=== PATIENT | female | born 1965 ===

== ENCOUNTER 2017-11-15 11:21 | Inpatient (IN) | payer BC ==
[2017-11-15 12:20] LABS: BASO # 0.1 K/uL (0.0-0.2); BASO % 0.9 % (0.0-2.0); EOS # 0.2 K/uL (0.0-0.7); EOS % 2.6 % (0.0-4.0); HEMOGLOBIN 15.1 g/dL (11.0-16.0); LYMPH # 2.4 K/uL (1.0-4.3); LYMPH % 30.3 % (20.0-40.0); MEAN CELL VOLUME 85.8 fL (81.0-99.0); MEAN CORPUSCULAR HGB CONC 34.9 g/dL (33.0-37.0); MEAN PLATELET VOLUME 9.7 fL (7.2-11.7); MONO # 0.6 K/uL (0.0-0.8); MONO % 7.9 % (0.0-10.0); NEUT # 4.7 K/uL (1.8-7.0); NEUT % 58.3 % (50.0-75.0); RBC 5.04 Mil/uL (3.80-5.20); RED CELL DISTRIBUTION WIDTH 13.4 % (11.5-14.5)
[2017-11-15 12:30] LABS: INR 1.1; PROTHROMBIN TIME 11.8 SECONDS (9.7-12.2)
[2017-11-15 12:35] LABS: ALB/GLOB RATIO 1.4 (1.0-2.1); ALBUMIN 4.4 g/dL (3.5-5.0); CALCIUM 9.3 mg/dl (8.6-10.4)
[2017-11-15] MEDS ORDERED: Sodium Chloride 0.9% 1,000 ML IV ONE (14:11)
[2017-11-15 14:29] LABS: SQUAMOUS EPITHIAL 1 /hpf (0-5); URINE BACTERIA RARE (<OCC); URINE BILIRUBIN NEGATIVE (NEGATIVE); URINE BLOOD 1+ (NEGATIVE); URINE CLARITY Hazy (Clear); URINE COLOR Straw (YELLOW); URINE GLUCOSE (UA) NORMAL (Normal); URINE LEUKOCYTE ESTERASE 3+ Leu/uL (Negative); URINE PROTEIN NEGATIVE (NEGATIVE); URINE UROBILINOGEN NORMAL mg/dL (0.2-1.0)
[2017-11-15 16:15] VITALS: RESP 20
--- NOTE | 2017-11-15 17:23 | C.PDOC ---
History Of Present Illness 52-year-old female, presents to the emergency department with complaints of a kidney stone. Patient referred by Dr Torres, nephrology, for kidney stone. Patient had a CT scan that showed a 1.8cm in right kidney. She is currently denying pain. Notes occasional burning on urination. No other complaints at this time. Chief Complaint (Nursing): Female Genitourinary History Per: Patient History/Exam Limitations: no limitations Past Medical History Reviewed: Historical Data, Nursing Documentation, Vital Signs Vital Signs: Last Vital Signs Temp 98.2 F 11/15/17 16:08 Pulse 65 11/15/17 16:08 Resp 20 11/15/17 16:08 BP 123/84 11/15/17 16:08 Pulse Ox 98 11/15/17 17:25 - Medical History PMH: Hyperthyroidism, Kidney Stones, Chronic Kidney Disease Family History: States: No Known Family Hx - Social History Hx Alcohol Use: No Hx Substance Use: No - Immunization History Hx Tetanus Toxoid Vaccination: No Hx Influenza Vaccination: No Hx Pneumococcal Vaccination: No Review Of Systems Constitutional: Negative for: Fever, Chills Cardiovascular: Negative for: Chest Pain Gastrointestinal: Negative for: Nausea, Vomiting, Abdominal Pain Genitourinary: Positive for: Dysuria. Negative for: Frequency, Hematuria, Vaginal Discharge, Vaginal Bleeding, Pelvic Pain Musculoskeletal: Negative for: Back Pain Skin: Negative for: Rash Neurological: Negative for: Weakness, Numbness Physical Exam - Physical Exam Appears: Non-toxic, No Acute Distress Skin: Normal Color, Warm, Dry, No Rash Head: Atraumatic, Normacephalic Eye(s): bilateral: Normal Inspection, PERRL, EOMI Nose: Normal Oral Mucosa: Moist Lips: Normal Appearing Neck: Normal ROM Chest: Symmetrical Cardiovascular: Rhythm Regular, No Murmur Respiratory: Normal Breath Sounds, No Accessory Muscle Use Gastrointestinal/Abdominal: Soft, No Tenderness, No Guarding, No Rebound Back: CVA Tenderness (right, mild) Extremity: Normal ROM, No Deformity, No Swelling Neurological/Psych: Oriented x3, Normal Speech ED Course And Treatment - Laboratory Results Result Diagrams: 11/15/17 12:11 11/15/17 12:11 O2 Sat by Pulse Oximetry: 98 (RA) Pulse Ox Interpretation: Normal Medical Decision Making Medical Decision Making: Plan: * Bloodwork * UA * Reassess and Disposition Disposition - Disposition Disposition: HOSPITALIZED Disposition Time: 12:00 Condition: STABLE - Clinical Impression Clinical Impression: Kidney stone, Hydroureter, Hydronephrosis - Scribe Statement The provider has reviewed the documentation as recorded by the Scribe (Juan Francisco Huff) All medical record entries made by the Scribe were at my direction and personally dictated by me. I have reviewed the chart and agree that the record accurately reflects my personal performance of the history, physical exam, medical decision making, and the department course for this patient. I have also personally directed, reviewed, and agree with the discharge instructions and disposition.
--- NOTE | 2017-11-15 19:02 | CP.PCM.CON ---
History of Present Illness - History of Present Illness History of Present Illness: REASONS FOR CONSULT : CKD STAGE 3 WITH eGFR AT 43 ML / M ..STAGE 3 H/O LUISITO RENAL STONES R RENAL HYDRO WITH MID URETHRAL LARGE STONE 1.8 CM ON RENAL SONO WELL CT SCAN PROBABLE UTI S/P PARA THYRIODECTOMY 3-4 YEARS AGO 2/2 PRIMARY HYPER PARATHYROIDISM PT IS WELL KNOWN TO ME , FROM OFFICE WITH H/O PRM HYPER PARATHYROIDISM ,S/P SURGERY FOR THAT .. DID WELL POST OP H/O CKD , STABLE ..H/O BORDERLINE HTN .. H/O LUISITO RENAL STONES ON ROUTINE F/U RENAL SONO THERE WAS DISCOVERED R MODERATE TO SEVERE HYDRO .. RENAL CT WITHOUT CONTRAST REVEALED SEVERE R HYDRO WITH R MID URETHERAL STONE 1.8 CM .. PT WAS DIRECTED TO GO TO ER FOR STENT / OR IF NOT SUCCESSFUL THER PERC NEPHROSTOMY C D/W ER ATTENDING AT LENGTH CASE D/W DR YOST , UROLOGIST , AT LENGTH CASE D/W PT AND HER AT LENGTH CASE D/W DR REDD , PMD : HE IS VERY BUSY AT THE OFFICE .. TO BE ADMITTED UNDER DR Sravanthi COPELAND WITH ALL THE HYDRONEPHROSIS AND THE LARGE URETHERAL STONE : PT DENIED ANY PAIN ON THE R LOIN SHE DENIES ANY LOWER URINARY SYMPTOMS Past Patient History - Past Medical History & Family History Past Medical History?: Yes - Past Social History Smoking Status: Never Smoked - CARDIAC Hx Cardiac Disorders: No - PULMONARY Hx Respiratory Disorders: No - NEUROLOGICAL Hx Neurological Disorder: No - HEENT Hx HEENT Problems: No - RENAL Hx Chronic Kidney Disease: Yes Hx Kidney Stones: Yes - ENDOCRINE/METABOLIC Hx Hyperthyroidism: Yes - HEMATOLOGICAL/ONCOLOGICAL Hx Blood Disorders: No - INTEGUMENTARY Hx Dermatological Problems: No - MUSCULOSKELETAL/RHEUMATOLOGICAL Hx Musculoskeletal Disorders: No Hx Falls: No - GASTROINTESTINAL Hx Gastrointestinal Disorders: No - GENITOURINARY/GYNECOLOGICAL Hx Genitourinary Disorders: No - PSYCHIATRIC Hx Substance Use: No - SURGICAL HISTORY Hx Surgeries: Yes Hx Thyroidectomy: Yes Meds Allergies/Adverse Reactions: Allergies Allergy/AdvReac Type Severity Reaction Status Date / Time No Known Allergies Allergy Verified 11/15/17 11:28 - Medications Medications: Current Medications Dextrose/Sodium Chloride (Dextrose 5%/0.45% Ns 1000 Ml) 1,000 mls @ 100 mls/hr IV .Q10H [facility] Pneumococcal Polyvalent Vaccine (Pneumovax 23 Vaccine) 0.5 ml IM .ONCE ONE Stop: 11/18/17 10:01 Results - Vital Signs Recent Vital Signs: Last Vital Signs Temp 98.2 F 11/15/17 16:08 Pulse 65 11/15/17 16:08 Resp 20 11/15/17 16:08 BP 123/84 11/15/17 16:08 Pulse Ox 98 11/15/17 17:54 - Labs Result Diagrams: 11/15/17 12:11 11/15/17 12:11 Labs: Laboratory Results - last 24 hr 11/15/17 11/15/17 11/15/17 12:11 12:11 12:11 WBC 8.0 RBC 5.04 Hgb 15.1 Hct 43.2 MCV 85.8 MCH 30.0 MCHC 34.9 RDW 13.4 Plt Count 272 MPV 9.7 Neut % (Auto) 58.3 Lymph % (Auto) 30.3 [place] % (Auto) 7.9 Eos % (Auto) 2.6 Baso % (Auto) 0.9 Neut # (Auto) 4.7 Lymph # (Auto) 2.4 [place] # (Auto) 0.6 Eos # (Auto) 0.2 Baso # (Auto) 0.1 PT 11.8 INR 1.1 APTT 34 Sodium 142 Potassium 4.3 Chloride 106 Carbon Dioxide 22 Anion Gap 18 BUN 13 Creatinine 1.3 H Est GFR ( Amer) 52 Est GFR (Non-Af Amer) 43 Random Glucose 92 Calcium 9.3 Total Bilirubin 1.0 AST 37 H ALT 49 Alkaline Phosphatase 93 Total Protein 7.5 Albumin 4.4 Globulin 3.1 Albumin/Globulin Ratio 1.4 Urine Color Urine Clarity Urine pH Ur Specific [place] Urine Protein Urine Glucose (UA) Urine Ketones Urine Blood Urine Nitrate Urine Bilirubin Urine Urobilinogen Ur Leukocyte Esterase Urine WBC (Auto) Urine RBC (Auto) Ur Squamous Epith Cells Urine Bacteria Blood Type Antibody Screen 11/15/17 11/15/17 12:11 14:07 WBC RBC Hgb Hct MCV MCH MCHC RDW Plt Count MPV Neut % (Auto) Lymph % (Auto) [place] % (Auto) Eos % (Auto) Baso % (Auto) Neut # (Auto) Lymph # (Auto) [place] # (Auto) Eos # (Auto) Baso # (Auto) PT INR APTT Sodium Potassium Chloride Carbon Dioxide Anion Gap BUN Creatinine Est GFR ( Amer) Est GFR (Non-Af Amer) Random Glucose Calcium Total Bilirubin AST ALT Alkaline Phosphatase Total Protein Albumin Globulin Albumin/Globulin Ratio Urine Color Straw Urine Clarity Hazy Urine pH 6.0 Ur Specific [place] 1.005 Urine Protein Negative Urine Glucose (UA) Normal Urine Ketones Negative Urine Blood 1+ H Urine Nitrate Negative Urine Bilirubin Negative Urine Urobilinogen Normal Ur Leukocyte Esterase 3+ H Urine WBC (Auto) 51 H Urine RBC (Auto) 5 H Ur Squamous Epith Cells 1 Urine Bacteria Rare Blood Type AB POSITIVE Antibody Screen Negative Assessment & Plan - Assessment and Plan (Free Text) Assessment: CKD .. STAGE 3 e GFR 43 ML/M STABLE R SEVERE HYDRO WITH LARGE STONE AT MID URETHRA 1.[address] PROBABLE UTI LUISITO SMALL RENAL STONES ON BOTH KIDNEYS BORDERLINE HTN P : D/W UROLOGY .. NPO POST MIDNIGHT .. FOT ATTEMPTING TO STENTING IF NOT SUCCESSFUL 2/2 SIZE ,, THEN PERC NEPHROSTOMY BY IR C/O IVF NS / THEN D51/2 AT 100 CC/H ADD LEVAQIUN 500 MG IVSS DAILY INCLUDING TODAY WILL CHECK PTH INTACT MOLECULE .. CHECK VIT D 25 WILL KEEL CLOSE EYE ON PT - Date & Time Date: 11/15/17 Time: 19:00
[2017-11-15] MEDS: Dextrose 5%/0.45% NS 1,000 ML IV SCH (19:33)
--- NOTE | 2017-11-15 21:56 | CP.PCM.HP ---
Present on Admission - Present on Admission Any Indicators Present on Admission: No Past Patient History - Past Medical History & Family History Past Medical History?: Yes - Past Social History Smoking Status: Never Smoked - CARDIAC Hx Cardiac Disorders: No - PULMONARY Hx Respiratory Disorders: No - NEUROLOGICAL Hx Neurological Disorder: No - HEENT Hx HEENT Problems: No - RENAL Hx Chronic Kidney Disease: Yes Hx Kidney Stones: Yes - ENDOCRINE/METABOLIC Hx Hyperthyroidism: Yes - HEMATOLOGICAL/ONCOLOGICAL Hx Blood Disorders: No - INTEGUMENTARY Hx Dermatological Problems: No - MUSCULOSKELETAL/RHEUMATOLOGICAL Hx Musculoskeletal Disorders: No Hx Falls: No - GASTROINTESTINAL Hx Gastrointestinal Disorders: No - GENITOURINARY/GYNECOLOGICAL Hx Genitourinary Disorders: No - PSYCHIATRIC Hx Substance Use: No - SURGICAL HISTORY Hx Surgeries: Yes Hx Thyroidectomy: Yes Meds Allergies/Adverse Reactions: Allergies Allergy/AdvReac Type Severity Reaction Status Date / Time No Known Allergies Allergy Verified 11/15/17 11:28 Physical Exam - Constitutional Appears: No Acute Distress - Head Exam Head Exam: ATRAUMATIC, NORMAL INSPECTION, NORMOCEPHALIC - Eye Exam Eye Exam: EOMI, Normal appearance, PERRL Pupil Exam: NORMAL ACCOMODATION, PERRL - ENT Exam ENT Exam: Mucous Membranes Moist - Neck Exam Neck exam: Positive for: Full Rom - Respiratory Exam Respiratory Exam: Decreased Breath Sounds - Cardiovascular Exam Cardiovascular Exam: REGULAR RHYTHM, +S1, +S2 - GI/Abdominal Exam GI & Abdominal Exam: Diminished Bowel Sounds, Soft - Rectal Exam Rectal Exam: Deferred - Neurological Exam Neurological exam: Alert, Oriented x3 Results - Vital Signs Recent Vital Signs: Last Vital Signs Temp 98.2 F 11/15/17 16:08 Pulse 65 11/15/17 16:08 Resp 20 11/15/17 16:08 BP 123/84 11/15/17 16:08 Pulse Ox 98 11/15/17 17:54 - Labs Result Diagrams: 11/15/17 12:11 11/15/17 12:11 Labs: Laboratory Results - last 24 hr 11/15/17 11/15/17 11/15/17 12:11 12:11 12:11 WBC 8.0 RBC 5.04 Hgb 15.1 Hct 43.2 MCV 85.8 MCH 30.0 MCHC 34.9 RDW 13.4 Plt Count 272 MPV 9.7 Neut % (Auto) 58.3 Lymph % (Auto) 30.3 [place] % (Auto) 7.9 Eos % (Auto) 2.6 Baso % (Auto) 0.9 Neut # (Auto) 4.7 Lymph # (Auto) 2.4 [place] # (Auto) 0.6 Eos # (Auto) 0.2 Baso # (Auto) 0.1 PT 11.8 INR 1.1 APTT 34 Sodium 142 Potassium 4.3 Chloride 106 Carbon Dioxide 22 Anion Gap 18 BUN 13 Creatinine 1.3 H Est GFR ( Amer) 52 Est GFR (Non-Af Amer) 43 Random Glucose 92 Calcium 9.3 Total Bilirubin 1.0 AST 37 H ALT 49 Alkaline Phosphatase 93 Total Protein 7.5 Albumin 4.4 Globulin 3.1 Albumin/Globulin Ratio 1.4 25-OH Vitamin D Total Urine Color Urine Clarity Urine pH Ur Specific [place] Urine Protein Urine Glucose (UA) Urine Ketones Urine Blood Urine Nitrate Urine Bilirubin Urine Urobilinogen Ur Leukocyte Esterase Urine WBC (Auto) Urine RBC (Auto) Ur Squamous Epith Cells Urine Bacteria Blood Type Antibody Screen 11/15/17 11/15/17 11/15/17 12:11 14:07 20:08 WBC RBC Hgb Hct MCV MCH MCHC RDW Plt Count MPV Neut % (Auto) Lymph % (Auto) [place] % (Auto) Eos % (Auto) Baso % (Auto) Neut # (Auto) Lymph # (Auto) [place] # (Auto) Eos # (Auto) Baso # (Auto) PT INR APTT Sodium Potassium Chloride Carbon Dioxide Anion Gap BUN Creatinine Est GFR ( Amer) Est GFR (Non-Af Amer) Random Glucose Calcium Total Bilirubin AST ALT Alkaline Phosphatase Total Protein Albumin Globulin Albumin/Globulin Ratio 25-OH Vitamin D Total 57.5 Urine Color Straw Urine Clarity Hazy Urine pH 6.0 Ur Specific [place] 1.005 Urine Protein Negative Urine Glucose (UA) Normal Urine Ketones Negative Urine Blood 1+ H Urine Nitrate Negative Urine Bilirubin Negative Urine Urobilinogen Normal Ur Leukocyte Esterase 3+ H Urine WBC (Auto) 51 H Urine RBC (Auto) 5 H Ur Squamous Epith Cells 1 Urine Bacteria Rare Blood Type AB POSITIVE Antibody Screen Negative Assessment & Plan (1) Hydronephrosis Status: Acute (2) Hydroureter Status: Acute (3) Kidney stone Status: Acute - Assessment and Plan (Free Text) Plan: meds and labs reviewed nephro consult uro meds as ordered monitor labs
[2017-11-15] MEDS ORDERED: cefTRIAXone IV 1 gm in Dextros 50 ML IVPB SCH (23:00)
--- NOTE | 2017-11-16 04:04 | CON ---
DATE: 11/15/2017 HISTORY: The patient is a 52-year-old female who was seen by Dr. Marquis and admitted by Dr. Owens because of her right ureteral stone. The stone seen on the CAT scan on 11/12/2017, and it is 1.8 cm in the mid ureter causing hydronephrosis. The patient has previous treatment of stone, and she has surgery for parathyroid adenoma. A CAT scan which was done and an ultrasound which was done recently revealed obstructing 1.8 cm mid right ureter with right hydronephrosis, multiple small nonobstructing kidney bilaterally. I discussed the finding with the , and I am going to put stent in the morning, and will take her to the stone center for SWL next week. The patient is n.p.o. after midnight and stent will be inserted in the morning. Sandoval Cody MD
[2017-11-16] MEDS: Dextrose 5%/0.45% NS 1,000 ML IV SCH (06:18)
[2017-11-16 08:52] VITALS: BP 148/89; PULSE 62; TEMP 97.5; O2SAT 100
[2017-11-16] MEDS ORDERED: Iohexol 240 (50 ml) ONE (09:45)
[2017-11-16] MEDS ORDERED: Ciprofloxacin 400mg/200ml D5W 0 MG/0 ML BAG IVPB ONE (09:45)
[2017-11-16] MEDS ORDERED: Lidocaine 2% Jelly (Uro-Jet) ONE (09:45)
[2017-11-16] MEDS ORDERED: Pantoprazole 20 mg EC Tab PO SCH (10:00)
[2017-11-16] MEDS ORDERED: Enoxaparin 40 mg Syringe SC SCH (10:00)
--- NOTE | 2017-11-16 12:46 | CP.PCM.PN ---
Subjective - Date & Time of Evaluation Date of Evaluation: 11/16/17 Time of Evaluation: 12:46 - Subjective Subjective: Alert and orientedx3, denies any pain or bleeding. Objective - Vital Signs/Intake and Output Vital Signs (last 24 hours): Temp Pulse Resp BP Pulse Ox 97.5 F L 62 20 148/89 100 11/16/17 08:00 11/16/17 08:00 11/16/17 08:00 11/16/17 08:00 11/16/17 08:00 Intake and Output: 11/16/17 11/16/17 06:59 18:59 Intake Total 850 Balance 850 - Medications Medications: Current Medications Enoxaparin Sodium (Lovenox) 40 mg SC DAILY [facility] Last Admin: 11/16/17 09:10 Dose: Not Given Dextrose/Sodium Chloride (Dextrose 5%/0.45% Ns 1000 Ml) 1,000 mls @ 100 mls/hr IV .Q10H [facility] Last Admin: 11/16/17 06:18 Dose: 100 mls/hr Ceftriaxone Sodium (Rocephin Iv 1 Gm Duplex) 50 mls @ 100 mls/hr IVPB Q24H [facility] PRN Reason: Protocol Last Admin: 11/15/17 23:07 Dose: 100 mls/hr Morphine Sulfate (Morphine) 2 mg IVP Q6 PRN PRN Reason: Pain, moderate (4-7) Pantoprazole Sodium (Protonix Ec Tab) 20 mg PO DAILY [facility] Last Admin: 11/16/17 09:10 Dose: Not Given Pneumococcal Polyvalent Vaccine (Pneumovax 23 Vaccine) 0.5 ml IM .ONCE ONE Stop: 11/18/17 10:01 - Labs Labs: 11/15/17 12:11 11/15/17 12:11 PT 11.8 SECONDS (9.7-12.2) 11/15/17 12:11 INR 1.1 11/15/17 12:11 APTT 34 SECONDS (21-34) 11/15/17 12:11 Assessment and Plan - Assessment and Plan (Free Text) Assessment: 52 Year old female admitted with kidney stone, seen and examined. Denies any pain or bleeding. Seen by DR Cody, instructed to follow up on Sunday with him , cleared for discharge. Alert and oriented x3, NAD. Discussed with DR Sravanthi Owens, plan to discharge home today. Patient verbalized understanding to follow up.
[2017-11-18] MEDS ORDERED: Pneumococcal 23-Valent Vaccine IM ONE (10:00)
--- NOTE | 2017-11-19 16:43 | CARD ---
APPROVED REPORT EKG Measurement Heart [id number] <Conclusion> Normal sinus rhythm Low voltage QRS Septal infarct, age undetermined Abnormal ECG
== END 2017-11-16 14:21 | disposition home or self-care (01) | DRG 694 ==
LOC: C.ER 11:21 → OBSVTOIN 13:08 → C.9E 13:08 → C.3T 13:29
PROVIDERS: ADMIT Internal Medicine Nephrology; ATTEND Internal Medicine Nephrology
DX: N13.2 Hydronephrosis with renal and ureteral calculous obstruction (principal); N18.3 Chronic kidney disease, stage 3 (moderate); I12.9 Hypertensive chronic kidney disease with stage 1 through stage 4 chronic kidney disease, or unspecified chronic kidney disease; Z53.8 Procedure and treatment not carried out for other reasons